=== PATIENT | male | born 1975 | race Two or more races ===

== ENCOUNTER 2025-02-07 13:37 | Outpatient (RCR) | payer MEDICAID, SELFPAY ==
--- NOTE | 2025-02-26 01:42 | CTCFLWUP_ITS ---
Patient: JEANA ANDRADE : 1975 Page 3 of 5 FOLLOW UP NOTE DATE OF SERVICE: 02/07/2025 NAME: JEANA ANDRADE ACCOUNT: [id number] : 1975 AGE: 49 INTERVAL HISTORY: Mr. Carlos Lindsay, who underwent a kidney transplantation in 2016, presents for a routine follow-up. His overall health status remains stable with no new symptoms or concerns. Recent lab results from January 31 show normal white blood cell count, hemoglobin, liver enzymes, and kidney function. The patient will continue to have his tacrolimus levels monitored at the transplant center, and a new set of blood work has been ordered. Follow-up is scheduled for six months. Chief Complaint Routine follow-up after kidney transplantation History of Present Illness Mr. Carlos Lindsay, a patient with a history of kidney transplantation in 2016, presents for a follow-up visit. The patient's overall health status appears stable since his last visit, with no reported new symptoms or concerns. The patient's kidney transplant history is significant, with the procedure having been performed in 2016. Since then, his lab results have remained stable. There is no mention of any current complaints or symptoms related to his transplant or overall health. The patient does not report any changes in his daily functioning or any recent stressors that may be impacting his health. Adherence to the prescribed treatment regimen, particularly regarding immunosuppression, is implied as the clinician mentions the need for tacrolimus level monitoring at the transplant center. However, specific details about the patient's medication adherence are not provided in the transcript. Medical History - Kidney transplantation in 2016 Surgical History - Kidney transplantation in 2017 Medications and Supplements - Tacrolimus - Monitored at transplant center ONCOLOGY HISTORY: DIAGNOSIS: History of kidney transplantation (July 2017). History of anemia in the past. Anemia in chronic kidney disease [ICD10] D63.1; Hemochromatosis, unspecified [ICD10] E83.119 TREATMENT HISTORY: Care?Plan Start?Date Cycle Day Intent Rituximab?375?mg/m*2?-?1st?Line?or?Rel,?Ref 02/27/201511 27 Curative?(primary) HISTORY OF PRESENT ILLNESS: PREVIOUS NOTE: Mr. Andrade is a 49-year-old Lithuanian-speaking male with history of end-stage renal disease secondary to hypertension on dialysis in the past. Patient had kidney transplantation in July 2017. Since then he has been doing very well. CBC drawn on 02/13/2018 showed his WBC count to be 2.2 with a hemoglobin of 8.2 and platelet count 229,000. CBC drawn on 03/13/2018 showed his WBC count to be 5.8 hemoglobin 14.4 and platelets are 140,000. He is in the clinic today with repeat labs. His last CBC was drawn on 06/05/2018. WBC count is 7.4 hemoglobin is 17.5 and platelets are 130,000. He is doing very well today. Denies any weakness fatigue cough chest pain shortness of breath abdominal pain or leg cramps. 10/11/2018: Patient is in the clinic today with repeat labs. He is doing very well. Denies any new complaints. Denies any weakness fatigue cough chest pain or abdominal pain. His labs were drawn on 10/10/2018. WBC count is 8.6 hemoglobin is 16.9 and platelets are 147,000. Creatinine is 0.8. Anemia resolved. (04/05/2019: WBC 7.6, hemoglobin 15.8, platelets 152,000. 10/05/2019: WBC 7.0, hemoglobin 14.4, hematocrit 42.2, platelets 167,000. 03/06/2020: WBC 6.7, hemoglobin 15.6, MCV 94, platelets 166,000. Creatinine 0.89. 10/09/2020: Hemoglobin 15.1, MCV 91, WBC 5.2, platelets 160,000, creatinine 0.88. 04/14/2021: Hemoglobin 15.8, MCV 95, WBC 6.9, ANC 5.4, platelets 180,000, creatinine 0.89. 10/07/2021: WBC 7.5, ANC 5.8, hemoglobin 15.7, MCV 90, platelets 175,000. Creatinine 0.89. 04/16/2022: Hemoglobin 15.7, MCV 91, WBC 6.9, ANC 4.8, platelets 175,000, creatinine 0.76, AST 17, ALT 24. 10/19/2022: Hemoglobin 14.6, MCV 91, WBC 5.3, ANC 3.7, platelets 174,000, creatinine 0.91. 05/09/2023: Hemoglobin 13.6 , hematocrit 40.1, MCV 90, WBC 5.6, ANC 4.3, platelets 176,000, creatinine 0.85, AST 14, ALT 18. 08/02/23: Hemoglobin 14.0, MCV 90, WBC 5.5, ANC 3.8, platelets 194,000, creatinine 0.95 10/18/2023: Hemoglobin 15.3, MCV 90, WBC 6.8, ANC 5.1, platelets 208,000, creatinine 0.88 01/26/2024: Hemoglobin 14.5, MCV 92, WBC 6.1, ANC 4.3, platelets 228,000, creatinine 0.97 08/03/2024: Hemoglobin 13.6, MCV 93, WBC 6.5, ANC 4.8, platelets 214,000, creatinine 0.88 OTHER MEDICAL HISTORY/CONDITIONS: FAMILY HISTORY: SOCIAL HISTORY: MEDICATIONS: 1. atorvastatin - 10 mg Daily 2. benazepril - 5 mg Daily 3. carvedilol - 6.25 mg 1 tab Twice a Day 4. glipiZIDE-metformin - 2.5-500 mg 1 tab Twice a Day 5. Januvia - 50 mg 1 tab Daily 6. Januvia - 100 mg 1 tab Daily 7. levothyroxine - 50 mcg 1 tab Daily 8. mycophenolate mofetil - 500 mg 1 tab Twice a Day 9. pioglitazone - 30 mg 1 tab Daily 10. prednisone - 5 mg 1 tab Daily 11. tacrolimus - 1 mg 3 mg As directed Medications Last Reconciled by Sharron Ruby MA on 02/07/2025 ALLERGIES: Penicillins REVIEW OF SYSTEMS: A complete 14-point review of systems was performed and is negative except as noted in interval history. PHYSICAL EXAMINATION: VITAL SIGNS: Temperature?97.1, B/P?119/70, Oxygen?Saturation?96% Weight?150.6?lbs PAIN: 0 - No pain ECOG Performance Status: 0 - Asymptomatic and fully active GENERAL APPEARANCE: Appears well, in no apparent distress, appropriately interactive. HEENT: Normocephalic, no temporal wasting, normal conjunctiva, no scleral icterus, normal hearing, lips without lesions, neck normal range of motion. CARDIOVASCULAR: Not assessed. PULMONARY: Normal respiratory effort, no respiratory distress or use of accessory muscles, speaking in full sentences, no tachypnea. EXTREMITIES: No pedal edema or cyanosis. SKIN: Normal skin appearance. NEUROLOGIC: Alert and oriented x4. PSHYCHIATRIC: Appropriate affect, mood normal, behavior normal, intact thought and speech. LABORATORY DATA: I have personally reviewed and interpreted each of the patient?s relevant lab tests, abnormal findings are below: Laboratory, Imaging, and Diagnostic Test Results - Date: 01/31/2025 - CBC: WBC 5.3 (normal), Hemoglobin 14.2 g/dL (normal) - Liver enzymes: Normal - Kidney function: Normal - Hemoglobin A1c: 14.2% Date 08/18/15 02/13/16 03/23/18 ??WHITE?BLOOD?COUNT?(Thou/mm3) 6.8 5.7 7.1 ??RED?BLOOD?COUNT?(Miln/mm3) 3.12?L 3.71?L 4.78 ??HEMOGLOBIN?(gm/dl) 9.7?L 11.3?L 15.0 ??HEMATOCRIT?(%) 27.9?L 32.9?L 44.5 ??PLATELET?COUNT?(Thou/mm3) 112?L 124?L 138?L ??NEUTROPHILS?%,?AUTO?(%) 82?H 73 73 ??LYMPH?%,?AUTO?(%) 9?L 13 20 ??NEUTROPHILS,?AUTO?(Thou/mm3) 5.6 4.2 5.2 ??GLUCOSE,RANDOM?(mg/dL) ? ? 168?H ??BLOOD?UREA?NITROGEN?(mg/dL) ? ? 21?H ??CREATININE?(mg/dL) ? ? 1.20 ??SODIUM?(mmol/L) ? ? 144 ??POTASSIUM?(mmol/L) ? ? 4.1 ??CHLORIDE?(mmol/L) ? ? 108?H ??AST/SGOT?(Unit/L) ? ? 12?L ??ALT/SGPT?(Unit/L) ? ? 32 ??ALKALINE?PHOSPHATASE?(Unit/L) ? ? 77 ??BILIRUBIN,?TOTAL?(mg/dL) ? ? 0.3 ??PROTEIN?TOTAL?(gm/dl) ? ? 6.8 ??ALBUMIN,?SERUM?(gm/dl) ? ? 3.7 ??GLOBULIN?(gm/dl) ? ? 3.1 ??ALBUMIN/GLOBULIN?RATIO ? ? 1.2 ??CALCIUM,?SERUM?(mg/dL) ? ? 9.2 ??CALCIUM?SERUM?(CORRECTED)?(mg/dL) ? ? 9.4 ASSESSMENT/PLAN: Mr. Carlos Lindsay, status post kidney transplantation in 2016, presents for follow-up with stable laboratory results. Status post kidney transplantation Assessment: Patient underwent kidney transplantation in 2016. Recent laboratory results from January 31 show stable values. White blood cell count is 5.3, which is within normal range. Hemoglobin is 14.2, also normal. Liver enzymes and kidney function are reported as normal. Renal and hepatic functions are stable. Tacrolimus levels were not checked in this set of labs but are presumably being monitored at the transplant center. Plan: - Order new set of blood work - Follow up in 6 months (July) - Patient to complete blood work prior to next appointment - Continue monitoring tacrolimus levels at transplant center ORDERS: Order # Description [id number] Comprehensive Metabolic Panel - 12 + CBC with Auto Diff + MD Follow Up 6 Month RETURN TO CLINIC: BILLING AND COMPLIANCE: I reviewed external records from providers outside my specialty as summarized above. I spent a total of 50 minutes on this patient?s care on the day of their visit excluding time spent related to any billed procedures. This time includes time spent with the patient as well as time spent documenting in the medical record, reviewing patients records and tests, obtaining history, placing orders, communicating with other healthcare professionals, counseling the patient, family or caregiver, and/or care coordination for the diagnoses above. Electronically Signed by: Chun Keys MD T: 1:40 AM CC: Ben?Nils,? PCP: True Barbour Referring: True Barbour This document was completed utilizing speech recognition software. Grammatical errors, random word insertions, pronoun errors, and incomplete sentences are an occasional consequence of this system due to software limitations, ambient noise, and hardware issues. Any formal questions or concerns about the content, text or information contained within the body of this dictation should be directly addressed to the provider for clarification.
== END 2025-02-27 23:59 | disposition home or self-care (01) ==
LOC: SCTC 13:37
PROVIDERS: PCP Family Medicine; Referring Provider Family Medicine; Visit Provider Internal Medicine Hematology & Oncology
DX: Z09 Encounter for follow-up examination after completed treatment for conditions other than malignant neoplasm (principal); Z94.0 Kidney transplant status; Z86.2 Personal history of diseases of the blood and blood-forming organs and certain disorders involving the immune mechanism; Z87.448 Personal history of other diseases of urinary system
CPT/HCPCS: 99213; G0463

== ENCOUNTER 2025-08-12 10:37 | Outpatient (RCR) | payer MEDICAID, SELFPAY ==
--- NOTE | 2025-08-25 23:04 | CTCFLWUP_ITS ---
Patient: JEANA ANDRADE : 1975 Page 3 of 4 FOLLOW UP NOTE DATE OF SERVICE: 08/12/2025 NAME: JEANA ANDRADE ACCOUNT: [id number] : 1975 AGE: 50 INTERVAL HISTORY: Mr. Carlos Lindsay, who underwent a kidney transplantation in 2016, presents for a routine follow-up. His overall health status remains stable with no new symptoms or concerns. Recent lab results from January 31 show normal white blood cell count, hemoglobin, liver enzymes, and kidney function. The patient will continue to have his tacrolimus levels monitored at the transplant center, and a new set of blood work has been ordered. Follow-up is scheduled for six months. Chief Complaint Routine follow-up after kidney transplantation History of Present Illness Mr. Carlos Lindsay, a patient with a history of kidney transplantation in 2016, presents for a follow-up visit. The patient's overall health status appears stable since his last visit, with no reported new symptoms or concerns. The patient's kidney transplant history is significant, with the procedure having been performed in 2016. Since then, his lab results have remained stable. There is no mention of any current complaints or symptoms related to his transplant or overall health. The patient does not report any changes in his daily functioning or any recent stressors that may be impacting his health. Adherence to the prescribed treatment regimen, particularly regarding immunosuppression, is implied as the clinician mentions the need for tacrolimus level monitoring at the transplant center. However, specific details about the patient's medication adherence are not provided in the transcript. Medical History - Kidney transplantation in 2016 Surgical History - Kidney transplantation in 2017 Medications and Supplements - Tacrolimus - Monitored at transplant center ONCOLOGY HISTORY: DIAGNOSIS: History of kidney transplantation (July 2017). History of anemia in the past. Anemia in chronic kidney disease [ICD10] D63.1; Hemochromatosis, unspecified [ICD10] E83.119 TREATMENT HISTORY: Care?Plan Start?Date Cycle Day Intent Rituximab?375?mg/m*2?-?1st?Line?or?Rel,?Ref 02/27/201511 27 Curative?(primary) HISTORY OF PRESENT ILLNESS: PREVIOUS NOTE: Mr. Andrade is a 50-year-old Syriac-speaking male with history of end-stage renal disease secondary to hypertension on dialysis in the past. Patient had kidney transplantation in July 2017. Since then he has been doing very well. CBC drawn on 02/13/2018 showed his WBC count to be 2.2 with a hemoglobin of 8.2 and platelet count 229,000. CBC drawn on 03/13/2018 showed his WBC count to be 5.8 hemoglobin 14.4 and platelets are 140,000. He is in the clinic today with repeat labs. His last CBC was drawn on 06/05/2018. WBC count is 7.4 hemoglobin is 17.5 and platelets are 130,000. He is doing very well today. Denies any weakness fatigue cough chest pain shortness of breath abdominal pain or leg cramps. 10/11/2018: Patient is in the clinic today with repeat labs. He is doing very well. Denies any new complaints. Denies any weakness fatigue cough chest pain or abdominal pain. His labs were drawn on 10/10/2018. WBC count is 8.6 hemoglobin is 16.9 and platelets are 147,000. Creatinine is 0.8. Anemia resolved. (04/05/2019: WBC 7.6, hemoglobin 15.8, platelets 152,000. 10/05/2019: WBC 7.0, hemoglobin 14.4, hematocrit 42.2, platelets 167,000. 03/06/2020: WBC 6.7, hemoglobin 15.6, MCV 94, platelets 166,000. Creatinine 0.89. 10/09/2020: Hemoglobin 15.1, MCV 91, WBC 5.2, platelets 160,000, creatinine 0.88. 04/14/2021: Hemoglobin 15.8, MCV 95, WBC 6.9, ANC 5.4, platelets 180,000, creatinine 0.89. 10/07/2021: WBC 7.5, ANC 5.8, hemoglobin 15.7, MCV 90, platelets 175,000. Creatinine 0.89. 04/16/2022: Hemoglobin 15.7, MCV 91, WBC 6.9, ANC 4.8, platelets 175,000, creatinine 0.76, AST 17, ALT 24. 10/19/2022: Hemoglobin 14.6, MCV 91, WBC 5.3, ANC 3.7, platelets 174,000, creatinine 0.91. 05/09/2023: Hemoglobin 13.6 , hematocrit 40.1, MCV 90, WBC 5.6, ANC 4.3, platelets 176,000, creatinine 0.85, AST 14, ALT 18. 08/02/23: Hemoglobin 14.0, MCV 90, WBC 5.5, ANC 3.8, platelets 194,000, creatinine 0.95 10/18/2023: Hemoglobin 15.3, MCV 90, WBC 6.8, ANC 5.1, platelets 208,000, creatinine 0.88 01/26/2024: Hemoglobin 14.5, MCV 92, WBC 6.1, ANC 4.3, platelets 228,000, creatinine 0.97 08/03/2024: Hemoglobin 13.6, MCV 93, WBC 6.5, ANC 4.8, platelets 214,000, creatinine 0.88 OTHER MEDICAL HISTORY/CONDITIONS: FAMILY HISTORY: SOCIAL HISTORY: MEDICATIONS: 1. atorvastatin - 10 mg Daily 2. benazepril - 5 mg Daily 3. carvedilol - 6.25 mg 1 tab Twice a Day 4. glipiZIDE-metformin - 2.5-500 mg 1 tab Twice a Day 5. Januvia - 50 mg 1 tab Daily 6. Januvia - 100 mg 1 tab Daily 7. levothyroxine - 50 mcg 1 tab Daily 8. mycophenolate mofetil - 500 mg 1 tab Twice a Day 9. pioglitazone - 30 mg 1 tab Daily 10. prednisone - 5 mg 1 tab Daily 11. tacrolimus - 1 mg 3 mg As directed Medications Last Reconciled by Aicha Turner MD on 08/12/2025 ALLERGIES: Penicillins REVIEW OF SYSTEMS: A complete 14-point review of systems was performed and is negative except as noted in interval history. PHYSICAL EXAMINATION: VITAL SIGNS: Temperature?98.6, B/P?155/83, Oxygen?Saturation?96% Weight?150?lbs PAIN: 0 - No pain ECOG Performance Status: None GENERAL APPEARANCE: Appears well, in no apparent distress, appropriately interactive. HEENT: Normocephalic, no temporal wasting, normal conjunctiva, no scleral icterus, normal hearing, lips without lesions, neck normal range of motion. CARDIOVASCULAR: Not assessed. PULMONARY: Normal respiratory effort, no respiratory distress or use of accessory muscles, speaking in full sentences, no tachypnea. EXTREMITIES: No pedal edema or cyanosis. SKIN: Normal skin appearance. NEUROLOGIC: Alert and oriented x4. PSHYCHIATRIC: Appropriate affect, mood normal, behavior normal, intact thought and speech. LABORATORY DATA: I have personally reviewed and interpreted each of the patient?s relevant lab tests, abnormal findings are below: Date 08/18/15 02/13/16 03/23/18 ??WHITE?BLOOD?COUNT?(Thou/mm3) 6.8 5.7 7.1 ??RED?BLOOD?COUNT?(Miln/mm3) 3.12?L 3.71?L 4.78 ??HEMOGLOBIN?(gm/dl) 9.7?L 11.3?L 15.0 ??HEMATOCRIT?(%) 27.9?L 32.9?L 44.5 ??PLATELET?COUNT?(Thou/mm3) 112?L 124?L 138?L ??NEUTROPHILS?%,?AUTO?(%) 82?H 73 73 ??LYMPH?%,?AUTO?(%) 9?L 13 20 ??NEUTROPHILS,?AUTO?(Thou/mm3) 5.6 4.2 5.2 ??GLUCOSE,RANDOM?(mg/dL) ? ? 168?H ??BLOOD?UREA?NITROGEN?(mg/dL) ? ? 21?H ??CREATININE?(mg/dL) ? ? 1.20 ??SODIUM?(mmol/L) ? ? 144 ??POTASSIUM?(mmol/L) ? ? 4.1 ??CHLORIDE?(mmol/L) ? ? 108?H ??AST/SGOT?(Unit/L) ? ? 12?L ??ALT/SGPT?(Unit/L) ? ? 32 ??ALKALINE?PHOSPHATASE?(Unit/L) ? ? 77 ??BILIRUBIN,?TOTAL?(mg/dL) ? ? 0.3 ??PROTEIN?TOTAL?(gm/dl) ? ? 6.8 ??ALBUMIN,?SERUM?(gm/dl) ? ? 3.7 ??GLOBULIN?(gm/dl) ? ? 3.1 ??ALBUMIN/GLOBULIN?RATIO ? ? 1.2 ??CALCIUM,?SERUM?(mg/dL) ? ? 9.2 ??CALCIUM?SERUM?(CORRECTED)?(mg/dL) ? ? 9.4 ASSESSMENT/PLAN: Mr. Carlos Lindsay, status post kidney transplantation in 2017, presents for follow-up with stable laboratory results. Status post kidney transplantation Assessment: Patient underwent kidney transplantation in 2017. Recent laboratory results from January 31 show stable values. White blood cell count is 5.3, which is within normal range. Hemoglobin is 14.2, also normal. Liver enzymes and kidney function are reported as normal. Renal and hepatic functions are stable. Tacrolimus levels were not checked in this set of labs but are presumably being monitored at the transplant center. Plan: - Order new set of blood work - Follow up in 6 months (July) - Patient to complete blood work prior to next appointment - Continue monitoring tacrolimus levels at transplant center ORDERS: Order # Description [id number] Comprehensive Metabolic Panel - 12 + CBC with Auto Diff + MD Follow Up 6 Month [id number] RETURN TO CLINIC: I reviewed the diagnosis, prognosis, and recommended treatment/procedure options with the patient (and/or their legal b2b outside sales representative), including the potential benefits, risks, side effects and alternative therapies. We also discussed the option of no treatment and the possibility of clinical trial participation, if applicable. All questions were addressed, and they demonstrated understanding. They provided informed consent to proceed with the proposed plan of care. BILLING AND COMPLIANCE: I reviewed external records from providers outside my specialty as summarized above. I spent a total of 50 minutes on this patient?s care on the day of their visit excluding time spent related to any billed procedures. This time includes time spent with the patient as well as time spent documenting in the medical record, reviewing patients records and tests, obtaining history, placing orders, communicating with other healthcare professionals, counseling the patient, family or caregiver, and/or care coordination for the diagnoses above. Electronically Signed by: {Object.Sanct_ID*PnP.NameFL@M}, {Object.Sanct_ID*PnP.Suffix@U} D: {Object.Sanct_Date} T: {Object.Sanct_Time} CC: Ben?Nils,? PCP: True Barbour Referring: True Barbour This document was completed utilizing speech recognition software. Grammatical errors, random word insertions, pronoun errors, and incomplete sentences are an occasional consequence of this system due to software limitations, ambient noise, and hardware issues. Any formal questions or concerns about the content, text or information contained within the body of this dictation should be directly addressed to the provider for clarification.
== END 2025-08-30 23:59 | disposition home or self-care (01) ==
LOC: SCTC 10:37
PROVIDERS: PCP Family Medicine; Referring Provider Family Medicine; Visit Provider Internal Medicine Hematology & Oncology
DX: Z09 Encounter for follow-up examination after completed treatment for conditions other than malignant neoplasm (principal); Z94.0 Kidney transplant status; Z87.448 Personal history of other diseases of urinary system
CPT/HCPCS: 99212; G0463